=== PATIENT | female | born 1945 ===

== ENCOUNTER 2018-06-19 11:00 | Outpatient (RCR) | payer MEDICARE, MEDICAID | END 2018-07-05 | disposition home or self-care (01) | LOC: PTY 11:00 | DX: S46.819S Strain of other muscles, fascia and tendons at shoulder and upper arm level, unspecified arm, sequela (principal); M77.9 Enthesopathy, unspecified; M25.519 Pain in unspecified shoulder | CPT/HCPCS: 97110; 97162; G8984; G8985 ==

== ENCOUNTER 2018-07-12 11:15 | Outpatient (RCR) | payer MEDICARE, MEDICAID | END 2018-08-04 | disposition home or self-care (01) | LOC: PTY 11:15 | DX: M77.9 Enthesopathy, unspecified (principal); M25.519 Pain in unspecified shoulder; S46.819S Strain of other muscles, fascia and tendons at shoulder and upper arm level, unspecified arm, sequela ==

== ENCOUNTER 2018-08-09 11:20 | Outpatient (RCR) | payer MEDICARE, MEDICAID | END 2018-09-04 | disposition home or self-care (01) | LOC: PTY 11:20 | DX: M77.9 Enthesopathy, unspecified (principal); S46.819S Strain of other muscles, fascia and tendons at shoulder and upper arm level, unspecified arm, sequela; M25.519 Pain in unspecified shoulder ==